=== PATIENT | male | born 1965 ===

== ENCOUNTER 2020-03-26 04:34 | Emergency (ER) | payer SELFPAY ==
[2020-03-26] MEDS ORDERED: Sodium Chloride 0.9% 1,000 ML IV SCH (05:00)
[2020-03-26 05:12] LABS: BLOOD UREA NITROGEN,BUN 11 mg/dL (7.0-18.0); CARBON DIOXIDE,CO2 23.9 mmol/L (21.0-32.0); CHLORIDE,CL 102 mmol/L (98-107); GLUCOSE RANDOM 264 mg/dL (74-106); SODIUM,NA 139 mmol/L (136-148)
--- NOTE | 2020-03-26 06:24 | EDM.PDOC ---
ED HPI GENERAL MEDICAL PROBLEM - General Chief Complaint: General Stated Complaint: VIOLENT SHAKING Time Seen by Provider: 03/26/20 05:56 - History of Present Illness INITIAL COMMENTS - FREE TEXT/NARRATIVE: CHIEF COMPLAINT(S): Spasms HISTORY OF PRESENT ILLNESS: This is a 54-year-old man with a past medical history of diabetes mellitus who comes to the emergency department with a chief complaint of spasms. The patient states that upon awakening he started to experience spasms of all of his muscles in his body. He denies any chest pain, shortness of breath, abdominal pain, nausea or vomiting. He states that this usually happens however not to this degree when he eats a lot of sugar. He states that he had approximately one half of a cake at a birthday [employer] last night. He denies any diaphoresis, syncope, headache. He denies any increased urinary vision or any other abnormality. REVIEW OF SYSTEMS: Constitutional: Denies fever, chills. Eyes: Denies eye pain Ears, Nose, Mouth, & Throat: Denies earache Cardiovascular: Denies chest pain Respiratory: Denies shortness of breath Gastrointestinal: Denies Nausea, vomiting, diarrhea, hematochezia. Genitourinary: Denies hematuria MSK: Positive for muscle spasms throughout the body Skin:Denies a rash Neurological: Denies blurred vision Psychiatric: Denies depression PAST MEDICAL HISTORY: As per history of present illness and as reviewed below otherwise noncontributory. SURGICAL HISTORY: As per history of present illness and as reviewed below otherwise noncontributory. SOCIAL HISTORY: As per history of present illness and as reviewed below otherwise noncontributory. FAMILY HISTORY: As per history of present illness and as reviewed below otherwise noncontributory. EXAMINATION OF ORGAN SYSTEMS/BODY AREAS: Constitutional: Pressure was 90/75, heart rate 92, respiratory rate 18 with an oxygen saturation 97% on room air. Temperature 36.5 General: Middle-aged man who appears to be anxious Psychiatric: Anxious appearing Eyes: No scleral icterus or conjunctival erythema ENMT: Mildly dry mucous membranes. No pharyngeal erythema Cardiovascular: Regular, rate, and rhythm. No gallops, murmurs, or rubs. Bilateral upper extremity pulses symmetric and intact. No peripheral edema. No JVD. Respiratory: Lungs clear to auscultation bilaterally. No wheezes, rales, or rhonchi. Gastrointestinal: Soft, non-tender, non-distended. Normoactive bowel sounds Genitourinary: No suprapubic tenderness Musculoskeletal: Normal range of motion. No obvious spasms or abnormality. Skin: No lesions or abrasions. Neurological: Alert, GCS 15 strength and sensation grossly intact in upper and lower extremities bilaterally. MEDICAL DECISION MAKING AND COURSE IN THE ED WITH INTERPRETATION/REVIEW OF DIAGNOSTIC STUDIES: This is a 54-year-old man with a past medical history of diabetes mellitus who comes to the emergency department with acute total body muscle spasms who is normotensive and overall appears well. The patient does appear anxious. Will obtain labs including CBC, CMP, [id number] glucose and urinalysis. Will obtain UDS and ketones. Differential at this time could be DKA given his initial hyperglycemia of 236. We will provide the patient with 1 L normal saline bolus. Wells Criteria Clinical signs/symptoms of DVT: No (0) PE #1 Dx or equally likely: No (0) Heart Rate >100: No (0) Immobilization for 3 days or surgery in last month: No (0) Previously Dx PE or DVT: No (0) Hemoptysis: No (0) Malignancy w/ Tx within 6 months or palliative: No (0) Wells Score: 0 Twelve-lead EKG interpreted by myself. Normal sinus rhythm at a rate of 80 beats per minute. Normal axis. CT interval is 162 ms. QRS duration is [address] segments are normal without elevations or depressions. No Q waves present. Hypertrophy not noted. There is a T wave inversion in lead III. There is S1Q3T3 with no evidence of right heart strain interpretation: Sinus rhythm with nonspecific T wave inversion Laboratory: CBC reveals increased hemoglobin at 17.6 and hematocrit of 50.8 otherwise unremarkable. CMP reveals hyperglycemia at 264 otherwise unremarkable. Yes was negative. Serum ketones negative. Urinalysis was a clean catch and was negative for leukocyte esterase, negative for nitrites, and negative for blood. Interpretation: negative. There were trace ketones. After labs I did reevaluate the patient. The patient no longer had any spasms. The patient requested to be discharged. She states that this usually happens when he is hyperglycemic. I did recommend to him that at this time he should follow-up with his primary care physician to better manage his diabetes and to have further discussion. He states that he is does not like medications and that he would rather stop eating any sugars and carbs in order to control this. I did discuss with him that we do recommend a balanced diet and that cutting out the specific part of your diet could result in more harm than good. He seemed extremely resistant to this idea. However I did encourage him to follow-up for further discussion to discuss diet options and diabetes management. He was amenable to discharge at this time and had no further questions DISPOSITION: The patient was discharged home in stable condition. The patient will follow up with with his primary care physician CONDITION: Fair PROCEDURES: None FINAL IMPRESSION(S)/DIAGNOSES: 1. Acute muscle spasms, resolved 2. Hyperglycemia Tutu Belle M.D. - Related Data Allergies Allergy/AdvReac Type Severity Reaction Status Date / Time No Known Allergies Allergy Verified 03/26/20 04:45 Home Meds: Home Meds . [No Known Home Meds] 03/26/20 [History] Past Medical History HEENT History: Reports: None Cardiovascular History: Reports: None Respiratory History: Reports: None Gastrointestinal History: Reports: None Genitourinary History: Reports: None Musculoskeletal History: Reports: None Neurological History: Reports: None Psychiatric History: Reports: None Endocrine/Metabolic History: Reports: Other (See Below) Other Endocrine/Metabolic History: states DM but not sure if 1 or 2 Insulin Pump Model and Collateral Clerk: None Hematologic History: Reports: None Immunologic History: Reports: None Oncologic (Cancer) History: Reports: None Dermatologic History: Reports: None - Infectious Disease History Infectious Disease History: Reports: None - Past Surgical History Head Surgeries/Procedures: Reports: None Social & Family History - Caffeine Use Caffeine Use: Reports: None - Recreational Drug Use Recreational Drug Use: No ED ROS GENERAL - Review of Systems Review Of Systems: See Below ED EXAM, GENERAL - Physical Exam Exam: See Below Course - Vital Signs Last Recorded V/S: Last Vital Signs Temp 36.6 C 03/26/20 06:30 Pulse 83 03/26/20 06:30 Resp 18 03/26/20 06:30 BP 122/81 03/26/20 06:30 Pulse Ox 97 03/26/20 06:30 - Orders/Labs/Meds Labs: Laboratory Tests 03/26/20 03/26/20 03/26/20 Range/Units 04:44 04:44 04:44 WBC 9.04 (4.0-11.0) K/uL RBC 5.77 (4.50-5.90) M/uL Hgb 17.6 H (13.0-17.0) g/dL Hct 50.8 H (38.0-50.0) % MCV 88.0 (80.0-98.0) fL MCH 30.5 (27.0-32.0) pg MCHC 34.6 (31.0-37.0) g/dL RDW Std Deviation 43.1 (28.0-62.0) fl RDW Coeff of Trevor 13 (11.0-15.0) % Plt Count 260 (150-400) K/uL MPV 12.20 H (7.40-12.00) fL Neut % (Auto) 33.9 L (48.0-80.0) % Lymph % (Auto) 52.5 H (16.0-40.0) % White % (Auto) 10.0 (0.0-15.0) % Eos % (Auto) 3.2 (0.0-7.0) % Baso % (Auto) 0.4 (0.0-1.5) % Neut # (Auto) 3.1 (1.4-5.7) K/uL Lymph # (Auto) 4.8 H (0.6-2.4) K/uL White # (Auto) 0.9 H (0.0-0.8) K/uL Eos # (Auto) 0.3 (0.0-0.7) K/uL Baso # (Auto) 0.0 (0.0-0.1) K/uL Nucleated RBC % 0.0 /100WBC Nucleated RBCs # 0 K/uL Sodium 139 (136-148) mmol/L Potassium 4.0 (3.5-5.1) mmol/L Chloride 102 (98-107) mmol/L Carbon Dioxide 23.9 (21.0-32.0) mmol/L BUN 11 (7.0-18.0) mg/dL Creatinine 1.0 (0.8-1.3) mg/dL Est Cr Clr Drug Dosing 92.03 mL/min Estimated GFR (MDRD) > 60.0 ml/min Glucose 264 H (74-106) mg/dL POC Glucose (60-110) mg/dL Calcium 9.7 (8.5-10.1) mg/dL Total Bilirubin 0.5 (0.2-1.0) mg/dL AST 23 (15-37) IU/L ALT 54 (14-63) IU/L Alkaline Phosphatase 90 (46-116) U/L Total Protein 8.1 (6.4-8.2) g/dL Albumin 4.2 (3.4-5.0) g/dL Globulin 3.9 (2.6-4.0) g/dL Albumin/Globulin Ratio 1.1 (0.9-1.6) Urine Color Urine Appearance Urine pH (5.0-8.0) Ur Specific [place] (1.001-1.035) Urine Protein (NEGATIVE) mg/dL Urine Glucose (UA) (NEGATIVE) mg/dL Urine Ketones (NEGATIVE) mg/dL Urine Occult Blood (NEGATIVE) Urine Nitrite (NEGATIVE) Urine Bilirubin (NEGATIVE) Urine Urobilinogen (<2.0) EU/dL Ur Leukocyte Esterase (NEGATIVE) Urine Opiates Screen (NEGATIVE) Ur Oxycodone Screen (NEGATIVE) Urine Methadone Screen (NEGATIVE) Ur Barbiturates Screen (NEGATIVE) Ur Phencyclidine Scrn (NEGATIVE) Ur Amphetamine Screen (NEGATIVE) U Methamphetamines Scrn (NEGATIVE) U Benzodiazepines Scrn (NEGATIVE) U Cocaine Metab Screen (NEGATIVE) U Marijuana (THC) Screen (NEGATIVE) Ketones NEGATIVE (NEG) 03/26/20 03/26/20 03/26/20 Range/Units 06:10 06:10 06:11 WBC (4.0-11.0) K/uL RBC (4.50-5.90) M/uL Hgb (13.0-17.0) g/dL Hct (38.0-50.0) % MCV (80.0-98.0) fL MCH (27.0-32.0) pg MCHC (31.0-37.0) g/dL RDW Std Deviation (28.0-62.0) fl RDW Coeff of Trevor (11.0-15.0) % Plt Count (150-400) K/uL MPV (7.40-12.00) fL Neut % (Auto) (48.0-80.0) % Lymph % (Auto) (16.0-40.0) % White % (Auto) (0.0-15.0) % Eos % (Auto) (0.0-7.0) % Baso % (Auto) (0.0-1.5) % Neut # (Auto) (1.4-5.7) K/uL Lymph # (Auto) (0.6-2.4) K/uL White # (Auto) (0.0-0.8) K/uL Eos # (Auto) (0.0-0.7) K/uL Baso # (Auto) (0.0-0.1) K/uL Nucleated RBC % /100WBC Nucleated RBCs # K/uL Sodium (136-148) mmol/L Potassium (3.5-5.1) mmol/L Chloride (98-107) mmol/L Carbon Dioxide (21.0-32.0) mmol/L BUN (7.0-18.0) mg/dL Creatinine (0.8-1.3) mg/dL Est Cr Clr Drug Dosing mL/min Estimated GFR (MDRD) ml/min Glucose (74-106) mg/dL POC Glucose 236 H (60-110) mg/dL Calcium (8.5-10.1) mg/dL Total Bilirubin (0.2-1.0) mg/dL AST (15-37) IU/L ALT (14-63) IU/L Alkaline Phosphatase (46-116) U/L Total Protein (6.4-8.2) g/dL Albumin (3.4-5.0) g/dL Globulin (2.6-4.0) g/dL Albumin/Globulin Ratio (0.9-1.6) Urine Color YELLOW Urine Appearance CLEAR Urine pH 5.5 (5.0-8.0) Ur Specific [place] 1.025 (1.001-1.035) Urine Protein NEGATIVE (NEGATIVE) mg/dL Urine Glucose (UA) >=1000 (NEGATIVE) mg/dL Urine Ketones TRACE H (NEGATIVE) mg/dL Urine Occult Blood NEGATIVE (NEGATIVE) Urine Nitrite NEGATIVE (NEGATIVE) Urine Bilirubin NEGATIVE (NEGATIVE) Urine Urobilinogen 0.2 (<2.0) EU/dL Ur Leukocyte Esterase NEGATIVE (NEGATIVE) Urine Opiates Screen NEGATIVE (NEGATIVE) Ur Oxycodone Screen NEGATIVE (NEGATIVE) Urine Methadone Screen NEGATIVE (NEGATIVE) Ur Barbiturates Screen NEGATIVE (NEGATIVE) Ur Phencyclidine Scrn NEGATIVE (NEGATIVE) Ur Amphetamine Screen NEGATIVE (NEGATIVE) U Methamphetamines Scrn NEGATIVE (NEGATIVE) U Benzodiazepines Scrn NEGATIVE (NEGATIVE) U Cocaine Metab Screen NEGATIVE (NEGATIVE) U Marijuana (THC) Screen NEGATIVE (NEGATIVE) Ketones (NEG) Meds: Medications Discontinued Medications Generic Name Dose Route Start Last Admin Trade Name Freq PRN Reason Stop Dose Admin Sodium Chloride 1,000 mls @ 999 mls/hr 03/26/20 05:00 03/26/20 05:02 Normal Saline IV 999 mls/hr ASDIRECTED CARMEN Administration Departure - Departure Time of Disposition: 06:22 Disposition: Home, Self-Care 01 Condition: Fair Clinical Impression: Hyperglycemia, Muscle spasm - Discharge Information *PRESCRIPTION DRUG MONITORING PROGRAM REVIEWED*: No *COPY OF PRESCRIPTION DRUG MONITORING REPORT IN PATIENT STORM: No Instructions: Muscle Cramps and Spasms, [id number], Hyperglycemia, [id number] Referrals: PCP,None [Primary Care Provider] - Forms: ED Department Discharge Additional Instructions: You were evaluated today on an emergent basis. Your muscle spasms have improved. This could be secondary to your hyperglycemia. Given that your symptoms resolved this is reassuring. Your work-up was negative except for high glucose. I do recommend follow-up with your primary care physician for a discussion regarding diet management or medications given that she discussed with me that the medications seem to make you feel bad. I do not recommend cutting out completely sugars and carbs. A well-balanced diet is important to management. Please return to the emergency department for any new or worsening symptoms. [facility] [address] [place] [address] [id number] [address] [address] The patient is informed of any results of their evaluation and diagnostic workup and all questions are answered. They are given discharge instructions and return precautions. The patient is stable for discharge. The patient states they understand and agree with the plan and that they will return if their symptoms get worse or if they have any new concerns. The following information is given to patients seen in the emergency department who are being discharged to home. This information is to outline your options for follow-up care. We provide all patients seen in our emergency department with a follow-up referral. The need for follow-up, as well as the timing and circumstances, are variable depending upon the specifics of your emergency department visit. If you don't have a primary care physician on staff, we will provide you with a referral. We always advise you to contact your personal physician following an emergency department visit to inform them of the circumstance of the visit and for follow-up with them and/or the need for any referrals to a consulting specialist. The emergency department will also refer you to a specialist when appropriate. This referral assures that you have the opportunity for follow-up care with a specialist. All of these measure are taken in an effort to provide you with optimal care, which includes your follow-up. Under all circumstances we always encourage you to contact your private physician who remains a resource for coordinating your care. When calling for follow-up care, please make the office aware that this follow-up is from your recent emergency room visit. If for any reason you are refused follow-up, please contact the [facility] Emergency Department at and asked to speak to the emergency department charge nurse. Sepsis Event Note (ED) - Evaluation Sepsis Screening Result: No Definite Risk - Focused Exam Vital Signs: Vital Signs Temp Temp Pulse Resp BP Pulse Ox 03/26/20 06:30 36.6 C 83 18 122/81 97 03/26/20 05:45 84 18 135/88 97 03/26/20 04:54 37.1 C 03/26/20 04:35 36.5 C 92 18 90/75 97
== END 2020-03-26 06:30 | disposition home or self-care (01) ==
LOC: MW.ED 04:34
DX: M62.838 Other muscle spasm (principal); E11.65 Type 2 diabetes mellitus with hyperglycemia
CPT/HCPCS: 36415; 80053; 80305; 81003; 82009; 82962; 85025; 93005; 99283; J7030